=== PATIENT | female | born 1950 | race Caucasian/White ===

== ENCOUNTER 2021-06-09 17:55 | Inpatient (IN) | payer MEDICARE, OTHER ==
[~2021-06-09] VITALS: Ht 160 cm; Wt 86.2 kg
[2021-06-09 19:50] LABS: BASOPHILS % 0.5 % (0.0-1.0); HEMOGLOBIN 12.9 g/dL (12.0-16.0); LYMPHOCYTES # (AUTO) 0.5 (1.0-3.2); LYMPHOCYTES % 5.6 % (18.0-39.1); MEAN CORPUSCULAR HEMOGLOBIN 29.4 pg (28-32); MEAN CORPUSCULAR HGB CONC 31.5 g/dL (31-35); MEAN CORPUSCULAR VOLUME 93.4 fL (81-99); MONOCYTES # (AUTO) 0.8 (0.2-0.8); MONOCYTES % 9.4 % (4.4-11.3); NEUTROPHILS # (AUTO) 7.1 (2.1-6.9); NEUTROPHILS % 83.6 % (38.7-80.0); PLATELET COUNT 152 x10e3/uL (140-360); RED BLOOD COUNT 4.39 x10e6/uL (3.6-5.1); RED CELL DISTRIBUTION WIDTH 13.9 % (11.7-14.4)
[2021-06-09] MEDS ORDERED: SODIUM CHLORIDE 0.9% 500ML 500 ML ONE (20:00)
[2021-06-09] MEDS: MECLIZINE HCL 12.5 MG TAB PO SCH ×2 (20:03→20:08)
[2021-06-09 20:10] LABS: ALBUMIN 3.3 g/dL (3.5-5.0); ALBUMIN/GLOBULIN RATIO 1.1 (0.8-2.0); ANION GAP 14.6 mmol/L (8-16); CALCIUM 9.1 mg/dL (8.4-10.2); CREATININE, SERUM 0.68 mg/dL (0.57-1.11); POTASSIUM 3.6 mmol/L (3.5-5.1)
[2021-06-09] MEDS ORDERED: SODIUM CHLORIDE 0.9% 500ML 500 ML IV ONE (20:15)
[2021-06-09 20:17] LABS: CREATINE KINASE MB 1.3 ng/mL (0-5.0)
[2021-06-09 20:57] LABS: CLARITY,URINE SL CLOUDY (CLEAR); COLOR,URINE YELLOW (YELLOW); LEUKOCYTE ESTERASE ,URINE NEGATIVE (NEGATIVE); NITRITE,URINE POSITIVE (NEGATIVE); PROTEIN,URINE DIPSTICK 1+ (NEGATIVE)
[2021-06-09 20:58] LABS: KETONES,URINE 2+ (NEGATIVE); URINE UROBILINOGEN 0.2 mg/dL (0.2 - 1)
[2021-06-09 21:11] LABS: BACTERIA,URINE MANY /HPF; EPITHELIAL CELLS,URINE RARE /LPF; RBC,URINE 0-5 /HPF (0-5)
[2021-06-09] MEDS ORDERED: DEXTROSE 50% SYRINGE 50 ML IV PRN (21:15)
[2021-06-09] MEDS ORDERED: ONDANSETRON HCL INJ 2MG/ML 2ML 2 MG/ML VIAL IV PRN (21:15)
[2021-06-09] MEDS ORDERED: MECLIZINE HCL 12.5 MG TAB PO PRN (21:30)
[2021-06-09] MEDS: SODIUM CHLORIDE 0.9% 1000ML 1,000 ML IV SCH (21:31)
[2021-06-09] MEDS: CEFTRIAXONE 1 GM in SODIUM CHLORIDE 0.9% 50ML 50 ML IV SCH (21:31)
[2021-06-09 22:39] VITALS: BP 119/77
[2021-06-09] MEDS ORDERED: ACETAMINOPHEN 325 MG TAB PO PRN (23:30)
[2021-06-09] MEDS: HYDROCODONE/APAP 5MG-325MG TAB PO PRN (23:43)
[2021-06-09] MEDS ORDERED: ATORVASTATIN CA20 MG (23:46)
[2021-06-09] MEDS ORDERED: TRULICITY1.5 MG/0.5 (23:46)
[2021-06-09] MEDS ORDERED: IRBESARTAN300 MG (23:46)
[2021-06-09] MEDS ORDERED: METFORMIN HCL1000 MG (23:46)
[2021-06-10 01:11] VITALS: BP 119/77
[2021-06-10] MEDS: SODIUM CHLORIDE 0.9% 1000ML 1,000 ML IV SCH ×4 (03:10→22:22)
[2021-06-10 05:03] VITALS: BP 126/81
[2021-06-10] MEDS: HYDROCODONE/APAP 5MG-325MG TAB PO PRN ×3 (05:32→19:45)
[2021-06-10 05:50] LABS: BASOPHILS % 0.4 % (0.0-1.0); EOSINOPHILS % 0.1 % (0.0-6.0); HEMATOCRIT 38.3 % (34.2-44.1); HEMOGLOBIN 12.2 g/dL (12.0-16.0); LYMPHOCYTES # (AUTO) 0.9 (1.0-3.2); LYMPHOCYTES % 12.8 % (18.0-39.1); MEAN CORPUSCULAR HEMOGLOBIN 29.7 pg (28-32); MEAN CORPUSCULAR HGB CONC 31.9 g/dL (31-35); MEAN CORPUSCULAR VOLUME 93.2 fL (81-99); MONOCYTES # (AUTO) 0.9 (0.2-0.8); MONOCYTES % 11.8 % (4.4-11.3); NEUTROPHILS # (AUTO) 5.5 (2.1-6.9); NEUTROPHILS % 74.4 % (38.7-80.0); PLATELET COUNT 157 x10e3/uL (140-360); RED BLOOD COUNT 4.11 x10e6/uL (3.6-5.1); RED CELL DISTRIBUTION WIDTH 13.9 % (11.7-14.4)
[2021-06-10 06:21] LABS: CREATINE KINASE MB 1.1 ng/mL (0-5.0)
[2021-06-10 06:25] LABS: ALBUMIN 3.1 g/dL (3.5-5.0); ALBUMIN/GLOBULIN RATIO 0.9 (0.8-2.0); ANION GAP 13.4 mmol/L (8-16); CALCIUM 9.3 mg/dL (8.4-10.2); CREATININE, SERUM 0.64 mg/dL (0.57-1.11); POTASSIUM 3.4 mmol/L (3.5-5.1)
[2021-06-10 07:02] LABS: MAGNESIUM 1.7 MG/DL (1.3-2.1)
[2021-06-10] MEDS ORDERED: SODIUM BICARBONATE 8.4% SYRING 150 ML ONE (07:03)
[2021-06-10] MEDS: INSULIN REGULAR, HUMAN 100 UNIT/1 ML SQ SCH ×4 (07:30→21:02)
[2021-06-10 08:00] VITALS: BP 126/81
[2021-06-10 11:52] VITALS: BP 123/83
[2021-06-10] MEDS: POLYETHYLENE GLYCOL 3350 17 GM PACK PO SCH (13:05)
[2021-06-10 14:59] LABS: CREATINE KINASE MB 3.3 ng/mL (0-5.0)
[2021-06-10 20:00] VITALS: BP 123/83
[2021-06-10 20:50] VITALS: BP 122/75
[2021-06-10] MEDS: MECLIZINE HCL 12.5 MG TAB PO SCH (20:51)
[2021-06-10] MEDS: CEFTRIAXONE 1 GM in SODIUM CHLORIDE 0.9% 50ML 50 ML IV SCH (21:02)
[2021-06-11 00:36] VITALS: BP 125/73
[2021-06-11 05:00] VITALS: BP 127/78
[2021-06-11] MEDS: SODIUM CHLORIDE 0.9% 1000ML 1,000 ML IV SCH ×4 (05:15→23:56)
[2021-06-11 05:52] LABS: BASOPHILS % 0.5 % (0.0-1.0); EOSINOPHILS % 0.4 % (0.0-6.0); HEMATOCRIT 38.8 % (34.2-44.1); HEMOGLOBIN 12.4 g/dL (12.0-16.0); LYMPHOCYTES # (AUTO) 1.5 (1.0-3.2); LYMPHOCYTES % 18.5 % (18.0-39.1); MEAN CORPUSCULAR VOLUME 93.7 fL (81-99); MONOCYTES # (AUTO) 0.9 (0.2-0.8); MONOCYTES % 11.9 % (4.4-11.3); NEUTROPHILS # (AUTO) 5.4 (2.1-6.9); NEUTROPHILS % 67.9 % (38.7-80.0); PLATELET COUNT 152 x10e3/uL (140-360); RED BLOOD COUNT 4.14 x10e6/uL (3.6-5.1)
[2021-06-11 06:21] LABS: ALBUMIN/GLOBULIN RATIO 0.9 (0.8-2.0); ANION GAP 12.7 mmol/L (8-16); CALCIUM 9.2 mg/dL (8.4-10.2); CREATININE, SERUM 0.65 mg/dL (0.57-1.11); POTASSIUM 3.7 mmol/L (3.5-5.1)
[2021-06-11 07:15] VITALS: BP 116/76
[2021-06-11] MEDS: INSULIN REGULAR, HUMAN 100 UNIT/1 ML SQ SCH ×4 (07:30→21:00)
[2021-06-11] MEDS ORDERED: ATORVASTATIN 20 MG TAB PO SCH (09:00)
[2021-06-11] MEDS: HYDROCODONE/APAP 5MG-325MG TAB PO PRN ×2 (09:16→16:29)
[2021-06-11] MEDS: POLYETHYLENE GLYCOL 3350 17 GM PACK PO SCH (09:16)
[2021-06-11] MEDS: METFORMIN HCL 500 MG TAB PO SCH (16:28)
[2021-06-11 20:57] VITALS: BP 117/83
[2021-06-11 21:00] VITALS: BP 117/83
[2021-06-11] MEDS: MECLIZINE HCL 12.5 MG TAB PO SCH (21:25)
[2021-06-11] MEDS: CEFTRIAXONE 1 GM in SODIUM CHLORIDE 0.9% 50ML 50 ML IV SCH (21:27)
[2021-06-11] MEDS: BENZONATATE 100 MG CAP PO PRN (21:34)
[2021-06-11 23:38] VITALS: BP 121/80
[2021-06-12] MEDS: HYDROCODONE/APAP 5MG-325MG TAB PO PRN (01:22)
[2021-06-12 04:50] VITALS: BP 109/78
[2021-06-12 06:42] LABS: BASOPHILS % 0.4 % (0.0-1.0); EOSINOPHILS # (AUTO) 0.2 (0.0-0.4); EOSINOPHILS % 2.7 % (0.0-6.0); HEMATOCRIT 34.8 % (34.2-44.1); HEMOGLOBIN 10.8 g/dL (12.0-16.0); LYMPHOCYTES # (AUTO) 1.9 (1.0-3.2); LYMPHOCYTES % 24.1 % (18.0-39.1); MEAN CORPUSCULAR HEMOGLOBIN 29.4 pg (28-32); MEAN CORPUSCULAR VOLUME 94.8 fL (81-99); MONOCYTES # (AUTO) 1.1 (0.2-0.8); MONOCYTES % 14.2 % (4.4-11.3); NEUTROPHILS # (AUTO) 4.5 (2.1-6.9); NEUTROPHILS % 57.8 % (38.7-80.0); PLATELET COUNT 142 x10e3/uL (140-360); RED BLOOD COUNT 3.67 x10e6/uL (3.6-5.1); RED CELL DISTRIBUTION WIDTH 14.3 % (11.7-14.4)
[2021-06-12] MEDS: SODIUM CHLORIDE 0.9% 1000ML 1,000 ML IV SCH (06:46)
[2021-06-12 07:03] LABS: ALBUMIN 2.6 g/dL (3.5-5.0); ALBUMIN/GLOBULIN RATIO 0.9 (0.8-2.0); ANION GAP 11.5 mmol/L (8-16); CREATININE, SERUM 0.6 mg/dL (0.57-1.11); POTASSIUM 3.5 mmol/L (3.5-5.1)
[2021-06-12] MEDS: INSULIN REGULAR, HUMAN 100 UNIT/1 ML SQ SCH ×2 (07:30→11:30)
[2021-06-12 07:40] VITALS: BP 115/76
[2021-06-12 07:55] VITALS: BP 115/76
[2021-06-12] MEDS: METFORMIN HCL 500 MG TAB PO SCH (08:30)
[2021-06-12] MEDS: BENZONATATE 100 MG CAP PO PRN (08:30)
[2021-06-12] MEDS: POLYETHYLENE GLYCOL 3350 17 GM PACK PO SCH (09:00)
[2021-06-12] MEDS ORDERED: LIDOCAINE 4% PATCH TP SCH (11:30)
[2021-06-12 11:35] VITALS: BP 114/71
[2021-06-12] MEDS ORDERED: Meclizine Hcl PO (15:01)
[2021-06-12] MEDS ORDERED: Lidocaine Patch TP (15:01)
[2021-06-12] MEDS ORDERED: BACTRIM DS TAB1 EACH PO (15:05)
[2021-06-12] MEDS ORDERED: MECLIZINE HCL12.5 MG PO (15:06)
[2021-06-12] MEDS ORDERED: TYLENOL EXTRA500 MG PO (15:08)
[2021-06-12 15:38] VITALS: BP 126/85
[2021-06-12] MEDS ORDERED: ONDANSETRON HCL 4 MG ORAL DISINTEGRATING TAB PO PRN (16:00)
== END 2021-06-12 16:43 | disposition home or self-care (01) | DRG 552 ==
LOC: ER 18:31 → ERHOLD 21:14 → MED/SURG3 22:39
PROVIDERS: ADMIT Internal Medicine; ATTEND Internal Medicine
DX: S33.2XXA Dislocation of sacroiliac and sacrococcygeal joint, initial encounter (principal); N39.0 Urinary tract infection, site not specified; M62.82 Rhabdomyolysis; R42 Dizziness and giddiness; I10 Essential (primary) hypertension; E78.5 Hyperlipidemia, unspecified; S39.92XA Unspecified injury of lower back, initial encounter; W18.39XA Other fall on same level, initial encounter; Z91.81 History of falling; Y92.019 Unspecified place in single-family (private) house as the place of occurrence of the external cause; E11.65 Type 2 diabetes mellitus with hyperglycemia; Z79.899 Other long term (current) drug therapy; Z79.4 Long term (current) use of insulin; M25.511 Pain in right shoulder; B96.20 Unspecified Escherichia coli [E. coli] as the cause of diseases classified elsewhere; E11.69 Type 2 diabetes mellitus with other specified complication; Z96.653 Presence of artificial knee joint, bilateral
CPT/HCPCS: 36415; 70450; 70544; 70547; 70551; 71045; 72100; 72220; 80053; 80061; 81001; 82550; 82553; 82948; 83036; 83735; 83880; 84100; 84484; 85025; 87040; 87086; 87186; 93005; 93306; 93880; 94799; 99284; J0696; J1817; J7030; J7040; U0002